=== PATIENT | female | born 1970 | race Caucasian/White ===

== ENCOUNTER 2021-04-02 14:25 | Emergency (ER) | payer MEDICARE, MEDICAID, SELFPAY ==
[2021-04-02 14:40] VITALS: BP 96/50; PULSE 72; RESP 18; TEMP 37.5; O2SAT 97
--- NOTE | 2021-04-02 15:00 | ED.URI ---
HPI - URI/Sore Throat General Chief Complaint: Upper Respiratory Infection Stated Complaint: Cough/Congestion/ Urinary Problem Time Seen by Provider: 04/02/21 15:06 Source: patient and RN notes reviewed Mode of arrival: ambulatory Limitations: no limitations History of Present Illness HPI Narrative: 51-year-old female with type 1 diabetes presents with concern for 2-week plus history of sinus congestion, sinus pressure, green nasal drainage, cough. Reports taking sugar-free cough medicines without relief. She also reports lower abdominal discomfort with foul-smelling urine. She denies fever, body aches, chills, sweats. Denies shortness of breath, known MD elicited complaint: nasal congestion Related Data Home Medications Medication Instructions Recorded Confirmed alprazolam 1 mg PO TID PRN 04/02/21 04/02/21 atorvastatin 20 mg PO DAILY 04/02/21 04/02/21 insulin regular human [Humulin R 04/02/21 Regular U-100 Insuln] omeprazole 40 mg PO DAILY 04/02/21 04/02/21 pregabalin 300 mg PO BID 04/02/21 04/02/21 promethazine 25 mg PO TID 04/02/21 04/02/21 zonisamide 100 mg PO TID 04/02/21 04/02/21 Allergies Allergy/AdvReac Type Severity Reaction Status Date / Time No Known Allergies Allergy Verified 04/02/21 14:57 Review of Systems Review of Systems: CONSTITUTIONAL: Denies malaise, chills, sweats, or fever. EYES: Denies visual changes, redness, or discharge. ENT: Reports rhinorrhea, congestion, sinus pain. Denies otalgia and sore throat. CARDIOVASCULAR: Denies chest pain, palpitations, or edema. RESPIRATORY: Reports cough. Denies dyspnea. GASTROINTESTINAL: Denies abdominal pain, nausea, vomiting, diarrhea : Reports foul-smelling urine, suprapubic discomfort SKIN: Denies rash or itching. MUSCULOSKELETAL: Denies myalgia. NEUROLOGIC: Denies headache. All systems reviewed & are unremarkable except as noted in HPI and below PMFSH Comments At time of signature, agree with nursing past medical, surgical, social and family history. There is no relevant family history pertinent to the presenting complaint Exam Narrative: GENERAL: Well-appearing, well-nourished, and in no acute distress. HEAD: Normocephalic EYES: PERRLA, conjunctivae clear ENT: Nares clear, purulent discharge. Mucous membranes moist. TM pearly pitts with dull light reflex bilaterally; no tragal tenderness. Oropharynx not erythematous without lesions. Tonsils not enlarged and without exudate, no drooling, no hoarseness, no trismus, uvula midline. NECK: Supple. No lymphadenopathy CHEST: Clear to auscultation, breath sounds equal. No wheezing, rhonchi, rales, or stridor. No respiratory distress, speaks in full sentences. Cough noted HEART: Regular rate and rhythm. No murmur heard. SKIN: Warm, dry, no rash. NEURO: Alert and oriented x3. PSYCH: Normal mood and affect Course Course Emergency Course: Patient is aware of diagnosis, understands and agrees to treatment plan. Anticipatory guidance given. Patient agrees to follow-up as directed and is aware of reasons to seek care at the emergency department. Portions of this record may have been created with voice recognition software Vital Signs Vital signs: Vital Signs Temperature 99.5 F 04/02/21 14:40 Pulse Rate 72 04/02/21 14:40 Respiratory Rate 18 04/02/21 14:40 Blood Pressure 96/50 L 04/02/21 14:40 Pulse Oximetry 97 04/02/21 14:40 Temperature 99.5 F 04/02/21 14:40 Pulse Rate 72 04/02/21 14:40 Respiratory Rate 18 04/02/21 14:40 Blood Pressure 96/50 L 04/02/21 14:40 Pulse Oximetry 97 04/02/21 14:40 Reviewed. MDM - URI/Sore Throat MDM Narrative Medical decision making narrative: Differential diagnosis considered: Avery virus, strep pharyngitis, allergic rhinitis, upper respiratory tract infection, sinusitis, rhinosinusitis, nasopharyngitis. viral pharyngitis, otitis media, otitis externa, pneumonia, bronchitis, viral cough syndrome, viral syndrome, and influenza. Exam fi
== END 2021-04-02 15:20 | disposition home or self-care (01) ==
PROVIDERS: Emergency Provider Nurse Practitioner
DX: J01.90 Acute sinusitis, unspecified (principal); R82.90 Unspecified abnormal findings in urine; E78.00 Pure hypercholesterolemia, unspecified; K21.9 Gastro-esophageal reflux disease without esophagitis; E11.9 Type 2 diabetes mellitus without complications
CPT/HCPCS: 81003; 87086; 99213; G0463

== ENCOUNTER 2021-10-30 13:17 | Emergency (ER) | payer MEDICARE, MEDICAID, SELFPAY ==
--- NOTE | ~2021-10-30 | XR_ITS ---
XR finger 1st RT min 2V 10/30/2021 13:39 Indication: Right first finger pain Procedure: 3 views right first finger Comparison: No prior studies for comparison. 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 Degenerative hobson es most advanced at the interphalangeal joint. No fracture or traumatic malalignment. No significant soft tissue abnormality. No foreign bodies. Impression: 1: No acute fracture. Reviewed, dictated and finalized at location A. Impression: 1: No acute fracture.
[2021-10-30 13:27] VITALS: BP 96/62; PULSE 63; RESP 16; TEMP 36.6; O2SAT 97
--- NOTE | 2021-10-30 13:58 | ED.UPPEXIN ---
HPI - Extremity Injury (Upper) General Chief Complaint: Extremity Injury, Upper Stated Complaint: Right Thumb Injury Time Seen by Provider: 10/30/21 14:00 Source: patient and RN notes reviewed Mode of arrival: ambulatory Limitations: no limitations History of Present Illness HPI narrative: 51-year-old female presents with concern for pain in the first digit of the right hand. She also reports swelling, decreased range of motion. She denies decreased sensation. She is unsure if she injured the finger, reports its been hurting since September. Reports she has an appointment with a hand surgeon in approximately 1 month. Reports they advised her to get an x-ray. She denies intervention other than ice. complaint: injury to: right and finger Related Data Home Medications Medication Instructions Recorded Confirmed alprazolam 1 mg PO TID PRN 04/02/21 10/30/21 atorvastatin 20 mg PO DAILY 04/02/21 10/30/21 insulin regular human [Humulin R 04/02/21 Regular U-100 Insuln] omeprazole 40 mg PO DAILY 04/02/21 10/30/21 pregabalin 300 mg PO BID 04/02/21 10/30/21 promethazine 25 mg PO TID 04/02/21 10/30/21 zonisamide 100 mg PO TID 04/02/21 10/30/21 insulin pump cart,cont inf,BT 10/30/21 10/30/21 [Omnipod Dash Pods (Gen 4)] Allergies Allergy/AdvReac Type Severity Reaction Status Date / Time No Known Allergies Allergy Verified 04/02/21 14:57 Review of Systems Review of Systems: CONSTITUTIONAL: Denies malaise, chills, sweats, or fever. CARDIOVASCULAR: Denies chest pain, palpitations, or edema. RESPIRATORY: Denies cough or dyspnea. SKIN: Denies rash or itching, bruising, redness, warmth, open skin MUSCULOSKELETAL: Reports right first digit pain, swelling, decreased range of motion and strength NEUROLOGIC: Denies numbness, weakness All systems reviewed & are unremarkable except as noted in HPI and below PMFSH Comments At time of signature, agree with nursing past medical, surgical, social and family history. There is no relevant family history pertinent to the presenting complaint Exam Narrative: GENERAL: Well-appearing, well-nourished, and in no acute distress. HEAD: Normocephalic EYES: PERRLA, conjunctivae clear NECK: Supple. CHEST: Speaks in full sentences. No respiratory distress. HEART: Regular rate and rhythm. Normal and equal peripheral pulses. EXTREMITIES: First digit of right hand has normal sensation. 3/5 strength with digit flexion, extension. Range of motion limited. No clubbing, cyanosis noted. Mild edema and she is a tenderness to the digit. Normal digital cascade with flexion of fingers, median, ulnar and radial nerve intact. Normal sensation of each side of finger. Can not perform 'okay' sign, or 'thumbs up' sign. No scissoring. Normal thumb opposition. Good capillary refill and radial pulse. Distal capillary refill less than 3 seconds. Patient is right hand dominant SKIN: Warn, dry, intact, pink. No rash NEURO: Alert and oriented x3. PSYCH: Normal mood and affect Course Course Emergency Course: Patient is aware of diagnosis, understands and agrees to treatment plan. Anticipatory guidance given. Patient agrees to follow-up as directed and is aware of reasons to seek care at the emergency department. Portions of this record may have been created with voice recognition software Level of Care: Express Care Visit Vital Signs Vital signs: Vital Signs Temperature 98 F 10/30/21 13:27 Pulse Rate 63 10/30/21 13:27 Respiratory Rate 16 10/30/21 13:27 Blood Pressure 96/62 L 10/30/21 13:27 Pulse Oximetry 97 10/30/21 13:27 Temperature 98 F 10/30/21 13:27 Pulse Rate 63 10/30/21 13:27 Respiratory Rate 16 10/30/21 13:27 Blood Pressure 96/62 L 10/30/21 13:27 Pulse Oximetry 97 10/30/21 13:27 Reviewed. MDM - Extremity Injury (Upper) MDM Narrative Medical decision making narrative: Patients injury and pain is consistent with musculoskeletal etiology. No signs of neurological or vascu
== END 2021-10-30 14:15 | disposition home or self-care (01) ==
PROVIDERS: Emergency Provider Nurse Practitioner
DX: M79.644 Pain in right finger(s) (principal); E78.00 Pure hypercholesterolemia, unspecified; K21.9 Gastro-esophageal reflux disease without esophagitis; E11.9 Type 2 diabetes mellitus without complications
CPT/HCPCS: 29130; 73140; 99213; G0463